=== PATIENT | female | born 1985 | race Caucasian/White ===

== ENCOUNTER 2017-03-08 04:27 | Inpatient (IN) | payer SELFPAY ==
[2017-03-08] MEDS ORDERED: NS 0.9% 1000 ML* 1,000 ML IV ONE (04:51)
[2017-03-08] MEDS ORDERED: Ondansetron INJ* 2 MG/ML VIAL ONE (05:02)
[2017-03-08] MEDS ORDERED: Ketorolac INJ* 30 MG/ML 1 ML VIAL ONE (05:03)
[2017-03-08] MEDS ORDERED: Ondansetron INJ* 2 MG/ML VIAL IV ONE ×2 (05:04→05:45)
[2017-03-08] MEDS ORDERED: Ketorolac INJ* 30 MG/ML 1 ML VIAL IV PUSH ONE (05:04)
[2017-03-08 05:12] LABS: Hematocrit 37 % (35-47); Hemoglobin 12.5 g/dl (12.0-16.0); Mean Corpuscular HGB Conc 33 g/dl (31-36); Mean Corpuscular Hemoglobin 33 pg (27-31); Mean Corpuscular Volume 100 fL (80-97); Mean Platelet Volume 8 um3 (7.4-10.4); Red Blood Count 3.75 10^6/ul (4.0-5.4); Red Cell Distribution Width 14 % (10.5-15)
[2017-03-08 05:14] LABS: Add Diff/Slide Review? Slide Review Added; Comments Flag Yes
[2017-03-08 05:23] LABS: Urine Bacteria 1+ (Absent); Urine Bilirubin Negative (Negative); Urine Glucose Negative (Negative); Urine Nitrite Negative (Negative)
[2017-03-08 05:25] LABS: ALT 19 U/L (7-52); AST 35 U/L (13-39); Albumin 4.1 g/dL (3.2-5.2); Alkaline Phosphatase 73 U/L (34-104); Anion Gap 11 mmol/L (2-11); BUN/Creatinine Ratio 15.8 (8-20); Blood Urea Nitrogen 12 mg/dL (6-24); C Reactive Protein 52.98 mg/L (< 5.00); CO2 Carbon Dioxide 20 mmol/L (22-32); Chloride 104 mmol/L (101-111); EGFR African American 114.9 (>60); EGFR Non-African American 89.4 (>60); Globulin 3.1 g/dL (2-4); Glucose 89 mg/dL (70-100); Potassium 3.5 mmol/L (3.5-5.0); Sodium 135 mmol/L (133-145); Total Protein 7.2 g/dL (6.4-8.9)
[2017-03-08] MEDS ORDERED: Morphine INJ* 2 MG/ML 1 ML SYRINGE IV ONE (05:34)
[2017-03-08 05:56] LABS: Eosinophils % 2 % (0-6); Immature Granulocytes 12 % (0-9); Neutrophil % 72 % (38-83); RBC Morphology Normal (Normal)
[2017-03-08] MEDS ORDERED: Levofloxacin 500 MG IVPREMIX(* 500 MG/100 ML BAG IVPB ONE (06:14)
[2017-03-08 06:22] LABS: Alcohol 261 mg/dL (<10)
[2017-03-08] MEDS: NS 0.9% 1000 ML* 1,000 ML IV SCH ×4 (06:32→20:10)
--- NOTE | 2017-03-08 07:30 | ED ---
Corby Hernandez Benjamin, scribed for Sammy Tejada MD on 03/08/17 at 0504 . GI/ HPI - HPI Summary HPI Summary: 31yo female c/o hematuria today with bilateral lower back pain/flank and fever. Pt had prior hx of UTI 2 years ago. Pt took advil [employer] for her pain. - History of Current Complaint Chief Complaint: EDFlankPain Time Seen by Provider: 03/08/17 04:45 Stated Complaint: FEVER/LEFT FLANK PAIN Hx Obtained From: Patient Onset/Duration: Started Days Ago - 1 day ago, Still Present Timing: Constant Severity: Moderate Current Severity: Moderate Pain Intensity: 7 Location of Pain: Flank - bilateral flank Associated Signs and Symptoms: Positive: Fever, Hematuria - Allergy/Home Medications Allergies/Adverse Reactions: Allergies Allergy/AdvReac Type Severity Reaction Status Date / Time No Known Allergies Allergy Verified 03/08/17 04:55 Home Medications: Home Medications NK [No Home Medications Reported] 03/08/17 [History Confirmed 03/08/17] PMH/Surg Hx/FS Hx/Imm Hx Previously Healthy: No History: Reports: Hx Kidney Infection Infectious Disease History: Denies: Traveled Outside the [place] in Last 30 Days - Family History Known Family History: Positive: Hypertension Negative: Cardiac Disease, Diabetes - Social History Occupation: Employed Full-time Lives: Alone Alcohol Use: Weekly Hx Substance Use: No Substance Use Type: Reports: None Smoking Status (MU): Current Every Day Smoker Review of Systems Positive: Fever Eyes: Negative ENT: Negative Cardiovascular: Negative Respiratory: Negative Gastrointestinal: Negative Positive: flank pain - bilateral, hematuria Musculoskeletal: Negative Skin: Negative Neurological: Negative Psychological: Normal All Other Systems Reviewed And Are Negative: Yes Physical Exam Triage Information Reviewed: Yes Vital Signs On Initial Exam: Initial Vitals Temp Pulse Resp BP Pulse Ox 100.8 F 134 20 125/76 99 03/08/17 04:34 03/08/17 04:34 03/08/17 04:34 03/08/17 04:34 03/08/17 04:34 Vital Signs Reviewed: Yes Appearance: Positive: Well-Appearing, Pain Distress - mild discomfort Skin: Positive: Warm Head/Face: Positive: Normal Head/Face Inspection Eyes: Positive: JUAN LUIS ENT: Positive: Hearing grossly normal Neck: Positive: Nontender Respiratory/Lung Sounds: Positive: Breath Sounds Present Cardiovascular: Positive: RRR Abdomen Description: Positive: Nontender, No Organomegaly, Soft, CVA Tenderness (L) - mild. Negative: CVA Tenderness (R) Bowel Sounds: Positive: Present Musculoskeletal: Positive: Strength/ROM Intact Neurological: Positive: Alert, Oriented to Person Place, Time Diagnostics - Vital Signs Vital Signs Temp Pulse Resp BP Pulse Ox 03/08/17 04:34 100.8 F 134 20 125/76 99 - Laboratory Lab Results: Lab Results 03/08/17 03/08/17 03/08/17 Range/Units 04:55 04:55 04:55 WBC 6.0 (3.5-10.8) 10^3/ul RBC 3.75 L (4.0-5.4) 10^6/ul Hgb 12.5 (12.0-16.0) g/dl Hct 37 (35-47) % MCV 100 H (80-97) fL MCH 33 H (27-31) pg MCHC 33 (31-36) g/dl RDW 14 (10.5-15) % Plt Count 165 (150-450) 10^3/ul MPV 8 (7.4-10.4) um3 Immature Gran % (Auto) 12 H (0-9) % Neut % (Auto) 89.8 H (38-83) % Lymph % (Auto) 6.2 L (25-47) % [place] % (Auto) 0.6 L (1-9) % Eos % (Auto) 1.3 (0-6) % Baso % (Auto) 2.1 H (0-2) % Absolute Neuts (auto) 5.4 (1.5-7.7) 10^3/ul Absolute Lymphs (auto) 0.4 L (1.0-4.8) 10^3/ul Absolute Monos (auto) 0 (0-0.8) 10^3/ul Absolute Eos (auto) 0.1 (0-0.6) 10^3/ul Absolute Basos (auto) 0.1 (0-0.2) 10^3/ul Absolute Nucleated RBC 0 10^3/ul Neutrophils % 72 (38-83) % Band Neutrophils % 12 H (0-8) % Lymphocytes % 14 L (25-47) % Eosinophils % 2 (0-6) % Nucleated RBC % 0 Normal RBC Morphology Normal (Normal) Sodium 135 (133-145) mmol/L Potassium 3.5 (3.5-5.0) mmol/L Chloride 104 (101-111) mmol/L Carbon Dioxide 20 L (22-32) mmol/L Anion Gap 11 (2-11) mmol/L BUN 12 (6-24) mg/dL Creatinine 0.76 (0.51-0.95) mg/dL Est GFR ( Amer) 114.9 (>60) Est GFR (Non-Af Amer) 89.4 (>60) BUN/Creatinine Ratio 15.8 (8-20) Glucose 89 (70-100) mg/dL Calcium 9.0 (8.6-10.3) mg/dL Total Bilirubin 0.50 (0.2-1.0) mg/dL AST 35 (13-39) U/L ALT 19 (7-52) U/L Alkaline Phosphatase 73 (34-104) U/L C-Reactive Protein 52.98 H (< 5.00) mg/L Total Protein 7.2 (6.4-8.9) g/dL Albumin 4.1 (3.2-5.2) g/dL Globulin 3.1 (2-4) g/dL Albumin/Globulin Ratio 1.3 (1-3) Beta HCG, Quant < 0.60 mIU/mL Urine Color Red A Urine Appearance Cloudy Urine pH 6.0 (5-9) Ur Specific [place] 1.011 (1.010-1.030) Urine Protein 2+(100 mg/dl) H (Negative) Urine Ketones Negative (Negative) Urine Blood 3+ H (Negative) Urine Nitrate Negative (Negative) Urine Bilirubin Negative (Negative) Urine Urobilinogen Negative (Negative) Ur Leukocyte Esterase 2+ H (Negative) Urine WBC (Auto) 3+(>20/hpf) H (Absent) Urine RBC (Auto) 3+(>10/hpf) H (Absent) Ur Squamous Epith Cells Present H (Absent) Ur Transition Epith Cell Present H (Absent) Urine Bacteria 1+ H (Absent) Urine Glucose Negative (Negative) Serum Alcohol 261 H (<10) mg/dL Result Diagrams: 03/08/17 04:55 03/08/17 04:55 Lab Statement: Any lab studies that have been ordered have been reviewed, and results considered in the medical decision making process. - CT CT A/P W/O CT Interpretation: Positive (See Comments) - UTI or recently passed kidney stone. CT Interpretation Completed By: Radiologist Re-Evaluation - Re-Evaluation First Eval Change: Improved - pt mildly improved, results d/w pt, case d/w hospitalist GIGU Course/Dx - Course Course Of Treatment: Discussed with Dr. Juarez (hospitalist) at 06:27. - Diagnoses Provider Diagnoses: Pyelonephritis Discharge - Discharge Plan Condition: Stable Disposition: ADMITTED TO [facility] documentation as recorded by the Corby kimbrough Benjamin accurately reflects the service I personally performed and the decisions made by me, Sammy Tejada MD.
[2017-03-08] MEDS: Ondansetron INJ* 2 MG/ML VIAL IV PRN (07:56)
[2017-03-08] MEDS: Morphine INJ* 2 MG/ML 1 ML SYRINGE IV PRN ×5 (07:56→17:31)
[2017-03-08] MEDS: oxyCODONE/Acetamin 5/325 MG* TAB PO PRN ×3 (07:56→20:08)
--- NOTE | 2017-03-08 08:54 | RAD ---
INDICATION: Bilateral flank pain and fever. COMPARISON: There are no prior studies available for comparison. TECHNIQUE: A CT scan of the abdomen and pelvis was performed without intravenous or oral contrast. Contiguous axial sections were obtained from the lung bases through the symphysis pubis. Images were reconstructed in the coronal and sagittal planes. FINDINGS: The lung bases are clear. No pleural effusion is present. The liver and spleen are normal in size without significant focal abnormality on this noncontrast study. The gallbladder appears distended. No calcified gallstones are seen. The pancreas appears to be within normal limits in size. The adrenal glands appear to be within normal limits. The kidneys are normal in size. No renal calculi are seen. There is mild dilatation of the right renal pelvis proximal and mid ureter. No ureteral or bladder calculi are seen. There is perinephric stranding around the right kidney. The aorta is normal in caliber without significant calcific plaque. No enlarged retroperitoneal lymph nodes are seen. The exam is limited due to a paucity of retroperitoneal fat. The stomach, small and large bowel appear nondistended. The appendix is within normal limits. There is no evidence for diverticulitis or colitis. The uterus is anteverted and normal in size. No free intraperitoneal air or fluid is seen. No significant focal osseous abnormality is seen. IMPRESSION: THERE IS RIGHT SIDE PERINEPHRIC STRANDING AND MILD RIGHT HYDRONEPHROSIS SUGGESTIVE OF RECENT PASSAGE OF A CALCULUS OR PYELONEPHRITIS. RECOMMEND CLINICAL CORRELATION.
--- NOTE | 2017-03-08 10:45 | HP ---
HISTORY AND PHYSICAL: DATE OF ADMISSION: 03/08/17 CHIEF COMPLAINT: Flank pain, fever. HISTORY OF PRESENT ILLNESS: Ms. Tolliver is a 31-year-old female with a past medical history of pyelonephritis, who presented to the hospital with abdominal pain, flank pain, and chills. The patient states her symptoms began 2 days ago with abdominal cramping and blood with urination. She initially thought that she had her period; however, overnight her cramps continued and seemed to get worse. She took Advil for the pain, which did not seem to help significantly. She lives in [facility], was up in the area for a wedding which she attended last night. She stated she was not feeling well initially; however, despite this at the wedding, she drank a significant amount of alcohol. She states she went back to her hotel last night and then woke up in the middle of the night with severe pain, which she initially described it as the left abdomen, groin area, and the flank. She states that it reminded her of the previous time she had pyelonephritis, which was actually during her and resulted in a miscarriage. The patient denies any dysuria; however, she does state she has felt significant chills and was wearing [address] in here[address] She also had few episodes of nausea and vomiting here in the hospital. Denies any chest pain, shortness of breath prior to this episode, had been feeling well lately. She has never had any history of kidney stones. PAST MEDICAL HISTORY: Pyelonephritis, miscarriage. PAST SURGICAL HISTORY: Rhinoplasty, hand surgery. HOME MEDICATIONS: None. ALLERGIES: The patient reports no known drug allergies. FAMILY HISTORY: Reviewed with the patient. She indicates none. SOCIAL HISTORY: The patient is a social tobacco user, usually only when she drinks. Reports smoking marijuana daily. Said she does not drink daily, usually just for big events or on the weekends. She has never had any history of withdrawal symptoms. REVIEW OF SYSTEMS: A 12-point review of systems negative except for that as noted in the HPI. PHYSICAL EXAMINATION GENERAL: The patient is a young female, lying in bed, in no apparent distress. VITAL SIGNS: On admission, temperature 100.8, heart rate 134, respiratory rate of 20, O2 saturation 99% on room air, blood pressure 125/76. HEENT: Head: Normocephalic, atraumatic. Eyes: Pupils equal, round, and reactive to light and accommodation. Anicteric sclerae. ENT: Dry mucous membranes. No cervical adenopathy. LUNGS: Clear to auscultation bilaterally. No wheezes, rales, or rhonchi. CARDIOVASCULAR: Regular rate and rhythm. S1, S2 present. No murmurs, gallops , or rubs. ABDOMEN: Soft, nondistended. Mild tenderness to palpation in the left lower quadrant. The patient has reported bilateral flank pain, right greater than left. EXTREMITIES: No cyanosis, clubbing, or edema. NEURO: The patient is alert and oriented x3. No focal neurological deficits. SKIN: Warm, dry, and well perfused. DIAGNOSTIC STUDIES/LAB DATA: White blood cell count of 6, hemoglobin of 12.5, hematocrit of 37, platelets of 165, bands of 12%. Sodium 135, potassium 3.5, chloride of 104, carbon dioxide of 20, BUN of 12, creatinine 0.76, glucose of 89. LFTs within normal limits. CRP is 52. Beta hCG is negative. UA with 2+ proteins, 3+ blood, 2+ leuk esterase, 3+ wbc's, 3+ rbc's, squamous and transitional epithelial cells present, 1+ bacteria. Serum alcohol 261. CT abdomen and pelvis, final read is pending. [facility] review showed some mild right-sided hydroureter with perinephric stranding. ASSESSMENT AND PLAN: Pyelonephritis in a 31-year-old female with little past medical history. 1. Pyelonephritis. The patient's white count is normal, but has a significant bandemia as well as a significant fever and tachycardia in the emergency department. I think she necessitates at least observation overnight. The patient received Levaquin in the emergency department. We will continue the patient on IV ciprofloxacin. Continue IV fluids at 100 cc per hour, analgesia, and antiemetics as needed. Urine culture is pending. We will await the final CT read. There is some possibility that the patient may have had a stone that passed, but it does not seem that there are any residual stones in the kidneys. 2. DVT prophylaxis. Ambulate. 3. Code status. The patient is a full code. TIME SPENT: Total time spent on this admission 35 minutes, with over half the time spent [id number] with the patient in counseling and coordinating care. [id number]/[facility] #: [id number] CHARLES
[2017-03-08] MEDS: PROCHLORPERAZINE INJ 5 MG/ML 2 ML VIAL IV PRN (17:31)
[2017-03-08] MEDS: Morphine INJ* 4 MG/ML 1 ML SYRINGE IV PRN ×2 (20:45→23:13)
[2017-03-09] MEDS: oxyCODONE/Acetamin 5/325 MG* TAB PO PRN ×2 (01:31→05:26)
[2017-03-09] MEDS: Morphine INJ* 4 MG/ML 1 ML SYRINGE IV PRN ×6 (03:45→23:17)
[2017-03-09] MEDS: Ciprofloxacin 400MG IVPREMIX(* 400 MG/200 ML BAG IVPB SCH ×2 (05:26→17:43)
[2017-03-09] MEDS: NS 0.9% 1000 ML* 1,000 ML IV SCH (07:35)
[2017-03-09] MEDS: Acetaminophen TAB* 325 MG PO PRN ×2 (07:36→17:43)
[2017-03-09 08:31] LABS: Hematocrit 33 % (35-47); Hemoglobin 10.6 g/dl (12.0-16.0); Mean Corpuscular HGB Conc 33 g/dl (31-36); Mean Corpuscular Hemoglobin 33 pg (27-31); Mean Corpuscular Volume 101 fL (80-97); Mean Platelet Volume 9 um3 (7.4-10.4); Red Blood Count 3.23 10^6/ul (4.0-5.4); Red Cell Distribution Width 14 % (10.5-15); White Blood Count 13.2 10^3/ul (3.5-10.8)
--- NOTE | 2017-03-09 08:31 | PN ---
Subjective Date of Service: 03/09/17 Interval History: Patient seen this morning. Still having significant flank pain, fever yesterday evening. Has been drinking. Notes urine clearing, denies dysuria. Family History: Unchanged from Admission Social History: Unchanged from Admission Past Medical History: Unchanged from Admission Objective Active Medications: Acetaminophen (Tylenol Tab*) 650 mg PO Q6H PRN PRN Reason: pain/fever Last Admin: 03/09/17 07:36 Dose: 650 mg Sodium Chloride (Ns 0.9% 1000 Ml*) 1,000 mls @ 100 mls/hr IV PER RATE RUDI Last Admin: 03/09/17 07:35 Dose: 100 mls/hr Ciprofloxacin/Dextrose (Cipro 400 Mg Ivpremix(*)) 400 mg in 200 mls @ 200 mls/ hr IVPB Q12H [facility] Last Admin: 03/09/17 05:26 Dose: 200 mls/hr Morphine Sulfate (Morphine Inj (Syringe)*) 4 mg IV Q2H PRN PRN Reason: SEVERE PAIN Last Admin: 03/09/17 07:36 Dose: 4 mg Ondansetron HCl (Zofran Inj*) 4 mg IV Q4H PRN PRN Reason: NAUSEA/VOMITING Last Admin: 03/08/17 07:56 Dose: 4 mg Oxycodone/Acetaminophen (Percocet 5/325 Tab*) 2 tab PO Q4H PRN PRN Reason: PAIN Last Admin: 03/09/17 05:26 Dose: 2 tab Prochlorperazine Edisylate (Compazine Inj*) 5 mg IV Q6H PRN PRN Reason: NAUSEA/VOMITING Last Admin: 03/08/17 17:31 Dose: 5 mg Vital Signs 03/08/17 03/08/17 03/08/17 08:44 11:20 11:51 Temperature 98.3 F 98.5 F Pulse Rate 94 96 Respiratory 16 16 16 Rate Blood Pressure 100/56 99/65 (mmHg) O2 Sat by Pulse 93 98 Oximetry 03/08/17 03/08/17 03/08/17 18:31 19:51 20:00 Temperature 101.9 F Pulse Rate 107 Respiratory 14 16 16 Rate Blood Pressure 121/70 (mmHg) O2 Sat by Pulse 84 Oximetry 03/08/17 03/08/17 03/08/17 21:45 23:13 23:51 Temperature 99.5 F Pulse Rate 91 Respiratory 18 16 16 Rate Blood Pressure 94/81 (mmHg) O2 Sat by Pulse 95 Oximetry 03/09/17 03/09/17 03/09/17 03:45 04:15 04:45 Temperature 99.4 F Pulse Rate 108 Respiratory 20 24 18 Rate Blood Pressure 135/84 (mmHg) O2 Sat by Pulse 96 Oximetry Oxygen Devices in Use Now: Nasal Cannula - 2L Appearance: Young, F, laying in bed in NAD Eyes: No Scleral Icterus Ears/Nose/Mouth/Throat: Mucous Membranes Moist Neck: NL Appearance and Movements; NL JVP Respiratory: Symmetrical Chest Expansion and Respiratory Effort, Clear to Auscultation Cardiovascular: NL Sounds; No Murmurs; No JVD, RRR Abdominal: NL Sounds; No Tenderness; No Distention, - - R flank pain Lymphatic: No Cervical Adenopathy Extremities: No Edema Skin: No Rash or Ulcers Neurological: Alert and Oriented x 3 Result Diagrams: 03/09/17 07:55 03/08/17 04:55 Assess/Plan/Problems-Billing Assessment: Pyelonephritis in a 31 yo F - Patient Problems (1) Pyelonephritis Current Visit: Yes Comment: Still with fever, labs pending this morning. Continue IV Cipro and IVF. Awaiting UCx. Continue analgesia and antiemetics. (2) DVT prophylaxis Current Visit: Yes Comment: Ambulate, low risk Status and Disposition: Change to inpatient
[2017-03-09 08:44] LABS: BUN/Creatinine Ratio 10.5 (8-20); Calcium 7.7 mg/dL (8.6-10.3); EGFR African American 114.9 (>60); EGFR Non-African American 89.4 (>60); Potassium 2.9 mmol/L (3.5-5.0)
[2017-03-09] MEDS ORDERED: Ketorolac INJ* 15 MG/ML 1 ML VIAL IV PUSH PRN (10:25)
[2017-03-09] MEDS: Potassium Chlor TAB* 20 MEQ TAB.ER PO SCH ×2 (10:39→12:11)
[2017-03-09] MEDS: hydrOXYzine HCL TAB* 25 MG PO PRN ×2 (12:12→23:16)
[2017-03-09] MEDS ORDERED: Morphine INJ* 4 MG/ML 1 ML SYRINGE IV PRN (18:13)
[2017-03-09] MEDS: Lidocaine PATCH 5%* 1 PATCH TRANSDERM SCH (18:36)
--- NOTE | 2017-03-09 18:55 | RAD ---
Indication: Hypoxia. Shortness of breath. Pyelonephritis. Comparison: Abdomen CT March 08, 2017 Technique: Upright AP 1822 hours Report: Upper normal heart size. Unremarkable central pulmonary vasculature bilateral prominent mid to basilar interstitial markings and small pleural effusions. Negative for pneumothorax. IMPRESSION: The constellation of findings may represent mild interstitial pulmonary edema or lower lung zone predominant bronchopneumonia. Correlate with clinical assessment.
[2017-03-09] MEDS ORDERED: Furosemide IV* 10 MG/ML VIAL (40 MG) IV ONE (19:24)
--- NOTE | 2017-03-09 19:32 | PN ---
Progress Note - Progress Note Date of Service: 03/09/17 Note: I interviewed the patient and examined her. She is sitting up in her bed, breathing quietly. She states she has a cough with a small amount of sputum. Her urine is pink. Pain control is adequate but it is still painful to take deep breaths. The 4 mg dose of morphine made her sleepy and groggy. On exam her lungs are clear, heart reg withour murmur or rub. Mod R flank tenderness. Her skin is warm and dry. CXR shows bilateral LL interstitial edema. case discussed with Dr. Leo. I note she received 80 meq KCL po today. I ordered a repeat stat BMP. I reduced her MS dose to 3 mg, and ordered incentve spirometry, explaining to the patient that I did not expect her to be able to achieve a large inspired volume.
[2017-03-09 20:00] LABS: BUN/Creatinine Ratio 11.8 (8-20); Calcium 8.2 mg/dL (8.6-10.3); EGFR African American 114.9 (>60); EGFR Non-African American 89.4 (>60); Potassium 3.7 mmol/L (3.5-5.0)
[2017-03-09] MEDS ORDERED: KCL 10 MEQ/50 ML IVPREMIX* 10 MEQ/50 ML BAG IV SCH (20:00)
[2017-03-09] MEDS ORDERED: ZOSYN 3.375 GM x ONE DOSE over 30 miuntes IVPB ×2 (20:00)
[2017-03-09] MEDS ORDERED: KCL premix 10MEQ/50 ML x 1 TIME IV ONE (21:00)
[2017-03-10] MEDS: Ketorolac INJ* 15 MG/ML 1 ML VIAL IV PUSH PRN ×2 (00:11→13:32)
[2017-03-10] MEDS: PROCHLORPERAZINE INJ 5 MG/ML 2 ML VIAL IV PRN (00:18)
[2017-03-10 05:29] LABS: Hematocrit 30 % (35-47); Hemoglobin 10.2 g/dl (12.0-16.0); Mean Corpuscular HGB Conc 34 g/dl (31-36); Mean Corpuscular Hemoglobin 34 pg (27-31); Mean Corpuscular Volume 100 fL (80-97); Mean Platelet Volume 9 um3 (7.4-10.4); Red Blood Count 3.03 10^6/ul (4.0-5.4); Red Cell Distribution Width 14 % (10.5-15); White Blood Count 8.3 10^3/ul (3.5-10.8)
[2017-03-10 05:31] LABS: Add Diff/Slide Review? Slide Review Added; Comments Flag Yes
[2017-03-10] MEDS: Lidocaine Patch REMOVE* 1 NOTE MISC PATCH OFF SCH (05:31)
[2017-03-10 05:44] LABS: Calcium 8.4 mg/dL (8.6-10.3); EGFR African American 103.8 (>60); EGFR Non-African American 80.7 (>60); Potassium 3.4 mmol/L (3.5-5.0)
[2017-03-10] MEDS: Morphine INJ* 4 MG/ML 1 ML SYRINGE IV PRN (06:03)
[2017-03-10] MEDS: Ondansetron INJ* 2 MG/ML VIAL IV PRN ×3 (06:03→19:14)
[2017-03-10] MEDS: Acetaminophen TAB* 325 MG PO PRN ×3 (07:56→19:14)
--- NOTE | 2017-03-10 08:50 | PN ---
Subjective Date of Service: 03/10/17 Interval History: Patient seen this morning. Feeling warm, still with pain. Had some N/V yesterday evening. Reports significant UOP after IV Lasix. Urine clearing. Anxious to go home. Family History: Unchanged from Admission Social History: Unchanged from Admission Past Medical History: Unchanged from Admission Objective Active Medications: Acetaminophen (Tylenol Tab*) 650 mg PO Q6H PRN Hydroxyzine HCl (Atarax Tab*) 25 mg PO Q4H PRN Piperacillin Sod/Tazobactam (Sod 3.375 gm/ Sodium Chloride) 100 mls @ 25 mls/ hr IVPB Q8H RUDI Ketorolac Tromethamine (Toradol Inj*) 30 mg IV PUSH Q6H PRN Lidocaine (Lidoderm 5% Patch*) 1 patch TRANSDERM 1830 RUDI Ondansetron HCl (Zofran Inj*) 4 mg IV Q4H PRN Oxycodone HCl (Roxycodone Tab*) 10 mg PO Q4H PRN Pharmacy Profile Note (Lidocaine Patch Remove*) 1 note PATCH OFF 0630 RUDI Prochlorperazine Edisylate (Compazine Inj*) 5 mg IV Q6H PRN Vital Signs 03/09/17 03/09/17 03/09/17 16:44 17:25 18:15 Temperature 101.7 F 99.3 F Pulse Rate Respiratory 20 24 Rate Blood Pressure (mmHg) O2 Sat by Pulse 77 96 Oximetry 03/10/17 03/10/17 03/10/17 06:03 06:07 07:03 Temperature 98.6 F Pulse Rate 78 Respiratory 16 16 15 Rate Blood Pressure 139/83 (mmHg) O2 Sat by Pulse 97 Oximetry Oxygen Devices in Use Now: Nasal Cannula - 2L Appearance: Young, F, laying in bed in NAD Eyes: No Scleral Icterus Ears/Nose/Mouth/Throat: NL Teeth, Lips, Gums Neck: NL Appearance and Movements; NL JVP Respiratory: Symmetrical Chest Expansion and Respiratory Effort, Clear to Auscultation Cardiovascular: - - Mild tachycardia, no m/g/r Abdominal: NL Sounds; No Tenderness; No Distention, - - R flank pain Lymphatic: No Cervical Adenopathy Extremities: No Edema Skin: No Rash or Ulcers Neurological: Alert and Oriented x 3 Result Diagrams: 03/10/17 05:19 03/10/17 05:19 Additional Lab and Data: Lab Results 03/08/17 03/08/17 03/08/17 Range/Units 04:55 04:55 04:55 WBC 6.0 (3.5-10.8) 10^3/ul RBC 3.75 L (4.0-5.4) 10^6/ul Hgb 12.5 (12.0-16.0) g/dl Hct 37 (35-47) % MCV 100 H (80-97) fL MCH 33 H (27-31) pg MCHC 33 (31-36) g/dl RDW 14 (10.5-15) % Plt Count 165 (150-450) 10^3/ul MPV 8 (7.4-10.4) um3 Immature Gran % (Auto) 12 H (0-9) % Neut % (Auto) 89.8 H (38-83) % Lymph % (Auto) 6.2 L (25-47) % [place] % (Auto) 0.6 L (1-9) % Eos % (Auto) 1.3 (0-6) % Baso % (Auto) 2.1 H (0-2) % Absolute Neuts (auto) 5.4 (1.5-7.7) 10^3/ul Absolute Lymphs (auto) 0.4 L (1.0-4.8) 10^3/ul Absolute Monos (auto) 0 (0-0.8) 10^3/ul Absolute Eos (auto) 0.1 (0-0.6) 10^3/ul Absolute Basos (auto) 0.1 (0-0.2) 10^3/ul Absolute Nucleated RBC 0 10^3/ul Neutrophils % 72 (38-83) % Band Neutrophils % 12 H (0-8) % Lymphocytes % 14 L (25-47) % Eosinophils % 2 (0-6) % Nucleated RBC % 0 Normal RBC Morphology Normal (Normal) Sodium 135 (133-145) mmol/L Potassium 3.5 (3.5-5.0) mmol/L Chloride 104 (101-111) mmol/L Carbon Dioxide 20 L (22-32) mmol/L Anion Gap 11 (2-11) mmol/L BUN 12 (6-24) mg/dL Creatinine 0.76 (0.51-0.95) mg/dL Est GFR ( Amer) 114.9 (>60) Est GFR (Non-Af Amer) 89.4 (>60) BUN/Creatinine Ratio 15.8 (8-20) Glucose 89 (70-100) mg/dL Calcium 9.0 (8.6-10.3) mg/dL Total Bilirubin 0.50 (0.2-1.0) mg/dL AST 35 (13-39) U/L ALT 19 (7-52) U/L Alkaline Phosphatase 73 (34-104) U/L C-Reactive Protein 52.98 H (< 5.00) mg/L Total Protein 7.2 (6.4-8.9) g/dL Albumin 4.1 (3.2-5.2) g/dL Globulin 3.1 (2-4) g/dL Albumin/Globulin Ratio 1.3 (1-3) Beta HCG, Quant < 0.60 mIU/mL Urine Color Red A Urine Appearance Cloudy Urine pH 6.0 (5-9) Ur Specific [place] 1.011 (1.010-1.030) Urine Protein 2+(100 mg/dl) H (Negative) Urine Ketones Negative (Negative) Urine Blood 3+ H (Negative) Urine Nitrate Negative (Negative) Urine Bilirubin Negative (Negative) Urine Urobilinogen Negative (Negative) Ur Leukocyte Esterase 2+ H (Negative) Urine WBC (Auto) 3+(>20/hpf) H (Absent) Urine RBC (Auto) 3+(>10/hpf) H (Absent) Ur Squamous Epith Cells Present H (Absent) Ur Transition Epith Cell Present H (Absent) Urine Bacteria 1+ H (Absent) Urine Glucose Negative (Negative) Serum Alcohol 261 H (<10) mg/dL Assess/Plan/Problems-Billing Assessment: Sepsis 2/2 pyelonephritis in a 31 yo F - Patient Problems (1) Pyelonephritis Current Visit: Yes Comment: Changed to Zosyn overnight. I think Cipro is adequate but will await sensitivities from E. Coli. CXR showed some mild interstitial edema, lung exam is benign. Suspect hypoxia is due to combination of atelectasis, fluid overload, some overnarcosis, maybe some mild ARDS from the infection. Encourage incentive spirometry. Will change to PO Oxycodone for pain in addition to IV toradol. Continue antiemetics. (2) DVT prophylaxis Current Visit: Yes Comment: Ambulate, low risk Status and Disposition: Inpatient for pyelo
[2017-03-10] MEDS: ceFAZolin 1 GM in Dextrose (*) 1 GM/50 ML BAG IVPB SCH ×2 (16:33→23:31)
[2017-03-10] MEDS: Lidocaine PATCH 5%* 1 PATCH TRANSDERM SCH (16:33)
[2017-03-10] MEDS ORDERED: Simethicone CHEW TAB* 80 MG PO PRN (18:44)
[2017-03-10] MEDS: oxyCODONE TAB* 5 MG TAB PO PRN (20:50)
[2017-03-11] MEDS: oxyCODONE TAB* 5 MG TAB PO PRN (01:48)
[2017-03-11] MEDS: PROCHLORPERAZINE INJ 5 MG/ML 2 ML VIAL IV PRN (01:49)
[2017-03-11] MEDS: Acetaminophen TAB* 325 MG PO PRN ×3 (01:55→15:44)
[2017-03-11] MEDS: Lidocaine Patch REMOVE* 1 NOTE MISC PATCH OFF SCH (05:34)
[2017-03-11 06:03] LABS: Hematocrit 33 % (35-47); Hemoglobin 10.9 g/dl (12.0-16.0); Mean Corpuscular HGB Conc 33 g/dl (31-36); Mean Corpuscular Hemoglobin 33 pg (27-31); Mean Corpuscular Volume 100 fL (80-97); Mean Platelet Volume 9 um3 (7.4-10.4); Red Blood Count 3.29 10^6/ul (4.0-5.4); Red Cell Distribution Width 14 % (10.5-15); White Blood Count 6.1 10^3/ul (3.5-10.8)
[2017-03-11 06:17] LABS: BUN/Creatinine Ratio 14.1 (8-20); Calcium 8.7 mg/dL (8.6-10.3); EGFR African American 92.2 (>60); EGFR Non-African American 71.7 (>60); Potassium 3.3 mmol/L (3.5-5.0)
[2017-03-11] MEDS: Ketorolac INJ* 15 MG/ML 1 ML VIAL IV PUSH PRN (08:11)
[2017-03-11] MEDS: ceFAZolin 1 GM in Dextrose (*) 1 GM/50 ML BAG IVPB SCH ×2 (08:12→15:45)
[2017-03-11] MEDS ORDERED: Furosemide IV* 10 MG/ML 2 ML VIAL (20 MG) IV ONE (08:36)
[2017-03-11] MEDS ORDERED: Promethazine TAB* 25 MG PO PRN (08:37)
--- NOTE | 2017-03-11 08:51 | PN ---
Subjective Date of Service: 03/11/17 Interval History: Patient seen this morning. Looking a bit better, still reports some subjective fevers/sweats, documented fevers less frequent. Has had some nausea/vomiting but also has been eating outside food ([employer], sushi). Encouraged bland food. Family History: Unchanged from Admission Social History: Unchanged from Admission Past Medical History: Unchanged from Admission Objective Active Medications: Acetaminophen (Tylenol Tab*) 650 mg PO Q6H PRN PRN Reason: pain/fever Last Admin: 03/11/17 08:00 Dose: 650 mg Hydroxyzine HCl (Atarax Tab*) 25 mg PO Q4H PRN PRN Reason: ITCHING Last Admin: 03/09/17 23:16 Dose: 25 mg Cefazolin Sodium/Dextrose (Kefzol 1 Gm In Dextrose Duplex (*)) 1 gm in 50 mls @ 200 mls/hr IVPB Q8H RUDI Last Admin: 03/11/17 08:12 Dose: 200 mls/hr Ketorolac Tromethamine (Toradol Inj*) 30 mg IV PUSH Q6H PRN PRN Reason: PAIN Last Admin: 03/11/17 08:11 Dose: 30 mg Lidocaine (Lidoderm 5% Patch*) 1 patch TRANSDERM 1830 [facility] Last Admin: 03/10/17 16:33 Dose: 1 patch Oxycodone HCl (Roxycodone Tab*) 10 mg PO Q4H PRN PRN Reason: PAIN Last Admin: 03/11/17 01:48 Dose: 10 mg Pharmacy Profile Note (Lidocaine Patch Remove*) 1 note PATCH OFF 0630 [facility] Last Admin: 03/11/17 05:34 Dose: 1 note Prochlorperazine Edisylate (Compazine Inj*) 5 mg IV Q6H PRN PRN Reason: NAUSEA/VOMITING Last Admin: 03/11/17 01:49 Dose: 5 mg Promethazine HCl (Phenergan Tab*) 25 mg PO Q6H PRN PRN Reason: NAUSEA Simethicone (Mylicon*) 80 mg PO Q6H PRN PRN Reason: DYSPEPSIA Last Admin: 03/10/17 19:50 Dose: 80 mg Vital Signs 03/10/17 03/10/17 03/10/17 13:27 16:06 18:25 Temperature 98.9 F 99.1 F 99.5 F Pulse Rate 94 67 Respiratory 22 19 Rate Blood Pressure 112/90 137/83 (mmHg) O2 Sat by Pulse 94 95 Oximetry 03/11/17 03/11/17 03/11/17 01:48 02:01 03:48 Temperature 100.8 F Pulse Rate Respiratory 20 17 Rate Blood Pressure (mmHg) O2 Sat by Pulse Oximetry 03/11/17 05:41 Temperature 98.4 F Pulse Rate 61 Respiratory 18 Rate Blood Pressure 137/86 (mmHg) O2 Sat by Pulse 97 Oximetry Oxygen Devices in Use Now: Nasal Cannula - 2L Appearance: Young, F, laying in bed in NAD Eyes: No Scleral Icterus Ears/Nose/Mouth/Throat: Mucous Membranes Moist Neck: NL Appearance and Movements; NL JVP Respiratory: Symmetrical Chest Expansion and Respiratory Effort, - - Absent BS in L base, otherwise clear Cardiovascular: NL Sounds; No Murmurs; No JVD, RRR Abdominal: NL Sounds; No Tenderness; No Distention, - - R CVA tenderness Lymphatic: No Cervical Adenopathy Extremities: No Edema Skin: No Rash or Ulcers Neurological: Alert and Oriented x 3 Result Diagrams: 03/11/17 05:17 03/11/17 05:17 Additional Lab and Data: Lab Results 03/08/17 03/08/17 03/08/17 Range/Units 04:55 04:55 04:55 WBC 6.0 (3.5-10.8) 10^3/ul RBC 3.75 L (4.0-5.4) 10^6/ul Hgb 12.5 (12.0-16.0) g/dl Hct 37 (35-47) % MCV 100 H (80-97) fL MCH 33 H (27-31) pg MCHC 33 (31-36) g/dl RDW 14 (10.5-15) % Plt Count 165 (150-450) 10^3/ul MPV 8 (7.4-10.4) um3 Immature Gran % (Auto) 12 H (0-9) % Neut % (Auto) 89.8 H (38-83) % Lymph % (Auto) 6.2 L (25-47) % [place] % (Auto) 0.6 L (1-9) % Eos % (Auto) 1.3 (0-6) % Baso % (Auto) 2.1 H (0-2) % Absolute Neuts (auto) 5.4 (1.5-7.7) 10^3/ul Absolute Lymphs (auto) 0.4 L (1.0-4.8) 10^3/ul Absolute Monos (auto) 0 (0-0.8) 10^3/ul Absolute Eos (auto) 0.1 (0-0.6) 10^3/ul Absolute Basos (auto) 0.1 (0-0.2) 10^3/ul Absolute Nucleated RBC 0 10^3/ul Neutrophils % 72 (38-83) % Band Neutrophils % 12 H (0-8) % Lymphocytes % 14 L (25-47) % Eosinophils % 2 (0-6) % Nucleated RBC % 0 Normal RBC Morphology Normal (Normal) Sodium 135 (133-145) mmol/L Potassium 3.5 (3.5-5.0) mmol/L Chloride 104 (101-111) mmol/L Carbon Dioxide 20 L (22-32) mmol/L Anion Gap 11 (2-11) mmol/L BUN 12 (6-24) mg/dL Creatinine 0.76 (0.51-0.95) mg/dL Est GFR ( Amer) 114.9 (>60) Est GFR (Non-Af Amer) 89.4 (>60) BUN/Creatinine Ratio 15.8 (8-20) Glucose 89 (70-100) mg/dL Calcium 9.0 (8.6-10.3) mg/dL Total Bilirubin 0.50 (0.2-1.0) mg/dL AST 35 (13-39) U/L ALT 19 (7-52) U/L Alkaline Phosphatase 73 (34-104) U/L C-Reactive Protein 52.98 H (< 5.00) mg/L Total Protein 7.2 (6.4-8.9) g/dL Albumin 4.1 (3.2-5.2) g/dL Globulin 3.1 (2-4) g/dL Albumin/Globulin Ratio 1.3 (1-3) Beta HCG, Quant < 0.60 mIU/mL Urine Color Red A Urine Appearance Cloudy Urine pH 6.0 (5-9) Ur Specific [place] 1.011 (1.010-1.030) Urine Protein 2+(100 mg/dl) H (Negative) Urine Ketones Negative (Negative) Urine Blood 3+ H (Negative) Urine Nitrate Negative (Negative) Urine Bilirubin Negative (Negative) Urine Urobilinogen Negative (Negative) Ur Leukocyte Esterase 2+ H (Negative) Urine WBC (Auto) 3+(>20/hpf) H (Absent) Urine RBC (Auto) 3+(>10/hpf) H (Absent) Ur Squamous Epith Cells Present H (Absent) Ur Transition Epith Cell Present H (Absent) Urine Bacteria 1+ H (Absent) Urine Glucose Negative (Negative) Serum Alcohol 261 H (<10) mg/dL Assess/Plan/Problems-Billing Assessment: Sepsis 2/2 pyelonephritis in a 31 yo F - Patient Problems (1) Pyelonephritis Current Visit: Yes Comment: Changed to Cefazolin with marley-sensitive E. coli on cx. Continue intermittent hypoxia likely due to mild ARDS, splinting. Sounds like possible small effusion, will redose with Lasix. PO Oxycodone for pain in addition to IV toradol. Continue antiemetics. (2) DVT prophylaxis Current Visit: Yes Comment: Ambulate, low risk Status and Disposition: Inpatient for pyelo
[2017-03-11 16:14] VITALS: BP 146/83
--- NOTE | 2017-03-12 03:00 | DS ---
DISCHARGE SUMMARY: DATE OF ADMISSION: 03/08/17 DATE OF DISCHARGE: 03/11/17 PRINCIPAL DISCHARGE DIAGNOSIS: Sepsis secondary to pyelonephritis due to E. coli, acute hypoxic respiratory failure secondary to fluid overload and acute respiratory distress syndrome. DISCHARGE MEDICATION REGIMEN: 1. Keflex 500 mg by mouth 4 times daily. 2. Compazine 5 mg by mouth every 6 hours as needed for nausea. 3. Oxycodone 5-10 mg by mouth every 6 hours as needed for pain. STUDIES DONE DURING HOSPITALIZATION: 1. CT abdomen and pelvis without contrast: Impression: There is right-sided perinephric stranding and mild right hydronephrosis suggestive of recent patch with calculus or pyelonephritis. Recommend clinical correlation. 2. Chest x-ray: Impression: The constellation of findings may represent mild interstitial pulmonary edema or lower lung zone predominant bronchopneumonia correlated with clinical judgement. HISTORY OF PRESENT ILLNESS AND HOSPITAL SUMMARY: Please see my full history and physical for full details. Briefly, Ms. Brantley is a 31-year-old female with a previous history pyelonephritis who presented to the hospital with abdominal flank pain and chills. She also noticed hematuria. In the emergency department, she was found to have a positive UA and CT scan findings consistent with pyelonephritis, mild hydroureter but no stones noted.. She was started on IV fluids and IV antibiotics. Over the following day she continued to intermittently spike fevers. Her urine culture subsequently grew a pansensitive E. coli and her antibiotics were narrowed. She did develop some hypoxia which was felt to be a combination of mild ARDS fluid overload from atelectasis due to splinting from pain as well as possibly some over narcosis from IV pain medications. The patient received IV Lasix with some decent urine output over the following days, was able to be weaned off oxygen. The patient had nausea and vomiting intermittently through the hospitalization as well which improved. She will be discharged home on oral Keflex, and is instructed to follow up with physician back home in [facility]. TIME SPENT: Total time spent on this discharge, 45 minutes. This is a summary of the hospitalization. Please see the full medical record for further details. [id number]/CPS #: [id number] [facility]
== END 2017-03-11 17:40 | disposition home or self-care (01) | DRG 689 ==
LOC: ED 04:27 → MED 07:28 → OBSVTOIN 03-09 08:23 → MED 03-09 15:12
PROVIDERS: ADMIT Hospitalist; ATTEND Hospitalist
DX: N12 Tubulo-interstitial nephritis, not specified as acute or chronic (principal); A41.9 Sepsis, unspecified organism; J96.01 Acute respiratory failure with hypoxia; J98.11 Atelectasis; Z87.440 Personal history of urinary (tract) infections; F17.200 Nicotine dependence, unspecified, uncomplicated; B96.20 Unspecified Escherichia coli [E. coli] as the cause of diseases classified elsewhere; E87.70 Fluid overload, unspecified
CPT/HCPCS: 36415; 71010; 74176; 80048; 80053; 80320; 81003; 81015; 84702; 85025; 86140; 87077; 87086; 87186; 99406; A9270-GY; G0480; J0690; J0744; J0780; J1885; J1940; J1956; J2270; J2405; J2543; J3480